=== PATIENT | female | born 1940 | race Caucasian/White ===

== ENCOUNTER 2016-12-29 11:51 | Emergency (ER) | payer OTHER ==
[~2016-12-29 11:51] MED LIST: ADVAIR 1001 DISK W/D PO; ADVAIR 2501 DISK W/D PO; ALBUTEROL17 GM INH; ALBUTEROL2.5 MG/0.5 INH; ALPRAZOLAM PO; AMITRYPTYLINE PO; ATARAX PO; ATORVASTATIN CA80 MG PO; AVANDIA PO; BRETHINE; BUSPAR PO; CALTRATE 600+D PO; CENTANY AT1 EACH TOP; CLARITIN10 M2 PO; CRESTOR PO; CYANOCOBALAM1000 MCG PO; DARVOCET-N 1001 TAB PO; DUONEB 2.5-0.5 M3 ML NEB; EC-NAPROSYN500 MG PO; FLAGYL PO; FLAGYL250 M1 PO; FOSAMAX70 MG PO; GLIPIZIDE10 MG PO; GLUCOVANCE 1.251 TAB PO; GLUCOVANCE 2.5/1 TA1 PO; HUMALOG MIX 75/23 M1 SUBQ; HUMULIN R100 U/ML; IMODIUM2 MG PO; KEPPRA500 M2 PO; LEVAQUIN PO; LEVSIN PO; LISINOPRIL PO; LISINOPRIL20 MG PO; LOPID600 MG PO; METFORMIN PO; MIRAPEX PO; NITROGLYGERIN0.4 MG SL; NITROGYLCERIN SL; NORVASC10 MG PO; NORVASC2.5 MG PO; PHENERGAN W/CO120 ML PO; PREMARIN PO; PROTONIX PO; SERTRALINE HCL100 M1 PO; SPIRIVA18 MCG INH; STAHIST TA1 TAB.SR . PO; THEOPHYLLIN PO; ZANTAC PO; ZESTRIL5 MG PO; ZETIA PO; ZOCOR PO
== END 2016-12-29 14:13 | disposition home or self-care (01) ==
LOC: SED 11:51
DX: S50.11XA Contusion of right forearm, initial encounter (principal); E11.9 Type 2 diabetes mellitus without complications; I10 Essential (primary) hypertension; J44.9 Chronic obstructive pulmonary disease, unspecified; Z87.891 Personal history of nicotine dependence; Z79.4 Long term (current) use of insulin; Z79.899 Other long term (current) drug therapy; Z88.0 Allergy status to penicillin; Z88.2 Allergy status to sulfonamides; Z88.8 Allergy status to other drugs, medicaments and biological substances; W19.XXXA Unspecified fall, initial encounter; Y92.009 Unspecified place in unspecified non-institutional (private) residence as the place of occurrence of the external cause
CPT/HCPCS: 99283

== ENCOUNTER 2017-03-07 11:54 | Inpatient (IN) | payer OTHER ==
--- NOTE | ~2017-03-07 | EKG ---
PATIENT: IDA MATHIS UNIT #: [id number] Ventricular Rate: 67 BPM Atrial Rate: 67 BPM P-R Interval: 202 ms QRS Duration: 88 ms Q-T Interval: 404 ms QTC Calculation(Bezet): 426 ms P [place]: 54 degrees Calculated R [place]: -28 degrees Calculated T [place]: 69 degrees Diagnosis Line: Normal sinus rhythm Diagnosis Line: Moderate voltage criteria for LVH, may be normal Diagnosis Line: variant Diagnosis Line: Borderline ECG Diagnosis Line: When compared with ECG of 06-DEC-2016 17:28, Diagnosis Line: No significant change was found Diagnosis Line: Confirmed by CHULA MILLER MD ([id number]) on Diagnosis Line: 03/12/2017 8:50:01 AM INTERPRETING MD: ANGELA BLAKE
[2017-03-07 12:51] LABS: BASOPHIL# 0.1 X10e3 (0-0.3); BASOPHIL% 0.5 % (0-2.5); EOSINOPHIL# 0.4 X10e3 (0-0.7); EOSINOPHIL% 3.7 % (0.0-7.0); HEMATOCRIT 34.9 % (35.0-45.0); HEMOGLOBIN 11.6 gm/dL (12.0-16.0); LYMPHOCYTE# 2.3 X10e3 (1.0-3.5); LYMPHOCYTE% 22.5 % (17.0-45.0); MEAN CELL VOLUME 86.2 FL (83-96); MEAN CORPUSCULAR HEMOGLOBIN 28.7 PG (28-34); MEAN CORPUSCULAR HGB CONC 33.3 g/dL (30-36); MEAN PLATELET VOLUME 8.1 FL (6.5-11.5); MONOCYTE# 0.6 X10e3 (0-1.0); MONOCYTE% 6.3 % (3.0-12.0); NEUTROPHIL# 6.7 X10e3 (1.5-7.1); PLATELET COUNT 336 X10e3 (140-420); RED BLOOD COUNT 4.05 X10e (3.90-5.30); RED CELL DISTRIBUTION WIDTH 13.5 % (11.0-15.5)
[2017-03-07 12:56] LABS: DIFF IND NO
[2017-03-07 13:08] LABS: BLOOD UREA NITROGEN 40 mg/dL (9-23); CALCIUM SERUM 9.3 mg/dL (8.4-10.2); CARBON DIOXIDE 24 mmol/L (22-31); CHLORIDE 106 mmol/L (100-111); GLOM FILT RATE Estimated 23.7 mL/min (>60); SODIUM 133 mmol/L (135-145)
[2017-03-07 13:10] LABS: POTASSIUM 5.8 mmol/L (3.5-5.1)
[2017-03-07 13:22] LABS: ALBUMIN SERUM 3.3 g/dL (3.5-5.0); ALKALINE PHOSPHATASE 60 U/L (32-92); ALT (SGPT) 12 U/L (10-40); AST (SGOT) 12 U/L (10-42); BILIRUBIN,TOTAL 0.3 mg/dL (0.2-2.0); GLUCOSE FASTING 266 mg/dL (70-110); PROTEIN TOTAL SERUM 7.3 g/dL (6.0-8.3)
[2017-03-07 13:23] LABS: BILIRUBIN, DIRECT <0.1 mg/dL (0.0-0.2); BILIRUBIN,INDIRECT 0.2 mg/dL (0.0-0.9)
[2017-03-09] MEDS ORDERED: HYDRALAZINE HCL50 MG PO (13:07)
[2017-03-09] MEDS ORDERED: FAMOTIDINE PO (13:07)
== END 2017-03-09 16:52 | disposition home or self-care (01) | DRG 683 ==
LOC: SED 11:54 → SEDOF 15:42 → SED 15:42 → C3A PCU 17:00
PROVIDERS: Emergency Medicine
PROC: 05H633Z Insertion of Infusion Device into Left Subclavian Vein, Percutaneous Approach (ICD-10-PCS; principal; 2017-03-08)
PROC: B547ZZA Ultrasonography of Left Subclavian Vein, Guidance (ICD-10-PCS; 2017-03-08)
DX: N17.9 Acute kidney failure, unspecified (principal); E44.1 Mild protein-calorie malnutrition; E11.22 Type 2 diabetes mellitus with diabetic chronic kidney disease; E11.65 Type 2 diabetes mellitus with hyperglycemia; K31.84 Gastroparesis; E11.43 Type 2 diabetes mellitus with diabetic autonomic (poly)neuropathy; E87.5 Hyperkalemia; J44.9 Chronic obstructive pulmonary disease, unspecified; Z90.710 Acquired absence of both cervix and uterus; I12.9 Hypertensive chronic kidney disease with stage 1 through stage 4 chronic kidney disease, or unspecified chronic kidney disease; N18.3 Chronic kidney disease, stage 3 (moderate); Z79.4 Long term (current) use of insulin; G40.909 Epilepsy, unspecified, not intractable, without status epilepticus; F32.9 Major depressive disorder, single episode, unspecified; G47.33 Obstructive sleep apnea (adult) (pediatric); K21.9 Gastro-esophageal reflux disease without esophagitis; G25.81 Restless legs syndrome
CPT/HCPCS: 36415; 76770; 80048; 80053; 80076; 81003; 82550; 82570; 82947; 83520; 83735; 84100; 84132; 84156; 84300; 84443; 85025; 85027; 86021; 86038; 86160; 86334; 87086; 93005; 94760; 99291; J0360; J0610; J1650; J1815; J1940; J1956

== ENCOUNTER 2017-03-22 14:39 | Emergency (ER) | payer OTHER ==
--- NOTE | ~2017-03-22 | CR72 ---
[facility] A Service of [facility] & [facility] RADIOLOGY TEXT RESULTS PATIENT: IDA MATHIS LOCATION: [facility] : 40 UNIT #: [id number] AGE: [address]: Weston Rojas MD SEX: F ORDER DR: [id number] [facility] [address] [place], [place] [address] [id number] E MR#: [id number] Acc #: [id number] NAME: IDA MATHIS : 1940 SEX: F STUDY DATE/TIME: 03/22/2017 15:55 UNIT: [facility] ROOM: STUDY DESCRIPTION: CR Chest Single View Portable Attending Physician: Weston Rojas M.D. Ordering Physician: Weston Rojas M.D. Primary Care Physician: Curry Gayle M.D. MEDICAL IMAGING REPORT This report is preliminary unless electronic signature is present EXAM Portable chest HISTORY Cough. Chest pain. Shortness of air for 3 days. FINDINGS Cardiac size and pulmonary vascularity are normal, allowing for shallow inspiration. No airspace infiltrates. No pleural effusions. [id number] hypertrophic and degenerative changes lower thoracic spine. IMPRESSION No acute findings and no active disease. Dictated by... Toño Pichardo M.D. THIS IS AN ELECTRONICALLY VERIFIED REPORT Toño Pichardo M.D. at 03/23/2017 10:31 PM DFL/pcl TD: 03/23/2017 00:27 JOB #: [id number] MEDICAL IMAGING REPORT Page 1 of 1 COPY
--- NOTE | ~2017-03-22 | EKG ---
PATIENT: IDA MATHIS UNIT #: [id number] Ventricular Rate: 66 BPM Atrial Rate: 66 BPM P-R Interval: 176 ms QRS Duration: 82 ms Q-T Interval: 414 ms QTC Calculation(Bezet): 434 ms P [place]: 32 degrees Calculated R [place]: -26 degrees Calculated T [place]: 59 degrees Diagnosis Line: Normal sinus rhythm Diagnosis Line: Moderate voltage criteria for LVH, may be normal Diagnosis Line: variant Diagnosis Line: Borderline ECG Diagnosis Line: When compared with ECG of 07-MAR-2017 12:38, Diagnosis Line: No significant change was found Diagnosis Line: Confirmed by RUSSELL HOUSER MD ([id number]) on Diagnosis Line: 03/23/2017 10:04:05 PM INTERPRETING MD: VICENTA
[~2017-03-22 14:39] MED LIST changes: +FAMOTIDINE PO; +HYDRALAZINE HCL50 MG PO
[2017-03-22 15:43] LABS: BASOPHIL# 0.1 X10e3 (0-0.3); BASOPHIL% 0.5 % (0-2.5); EOSINOPHIL# 0.2 X10e3 (0-0.7); EOSINOPHIL% 1.3 % (0.0-7.0); HEMATOCRIT 35.4 % (35.0-45.0); HEMOGLOBIN 11.5 gm/dL (12.0-16.0); LYMPHOCYTE# 3.4 X10e3 (1.0-3.5); LYMPHOCYTE% 24.1 % (17.0-45.0); MEAN CELL VOLUME 86.1 FL (83-96); MEAN CORPUSCULAR HEMOGLOBIN 28.1 PG (28-34); MEAN CORPUSCULAR HGB CONC 32.6 g/dL (30-36); MEAN PLATELET VOLUME 7.6 FL (6.5-11.5); NEUTROPHIL# 9.6 X10e3 (1.5-7.1); NEUTROPHIL% 67.1 % (40-75); PLATELET COUNT 381 X10e3 (140-420); RED CELL DISTRIBUTION WIDTH 13.5 % (11.0-15.5); WHITE BLOOD COUNT 14.3 X10e3 (4.0-10.5)
[2017-03-22 15:46] LABS: DIFF IND NO
[2017-03-22 15:57] LABS: POC - CKMB 2.2 ng/mL (0.0-7.9); POC - TROPONIN <0.05 ng/mL (<=0.05)
[2017-03-22 16:04] LABS: ALBUMIN SERUM 3.7 g/dL (3.5-5.0); ALKALINE PHOSPHATASE 61 U/L (32-92); ALT (SGPT) 14 U/L (10-40); AST (SGOT) 18 U/L (10-42); BILIRUBIN, DIRECT <0.1 mg/dL (0.0-0.2); BILIRUBIN,INDIRECT 0.4 mg/dL (0.0-0.9); BILIRUBIN,TOTAL 0.5 mg/dL (0.2-2.0); BLOOD UREA NITROGEN 31 mg/dL (9-23); BUN/CREATININE RATIO 17.22; CALCIUM SERUM 9.3 mg/dL (8.4-10.2); CARBON DIOXIDE 23 mmol/L (22-31); CHLORIDE 103 mmol/L (100-111); CREATININE SERUM 1.8 mg/dL (0.6-1.4); GLOM FILT RATE Estimated 26.9 mL/min (>60); GLUCOSE FASTING 70 mg/dL (70-110); POTASSIUM 4.5 mmol/L (3.5-5.1); SODIUM 136 mmol/L (135-145)
[2017-03-22 17:51] LABS: POC - CKMB 2.4 ng/mL (0.0-7.9); POC - TROPONIN <0.05 ng/mL (<=0.05)
== END 2017-03-22 19:05 | disposition home or self-care (01) ==
LOC: CED 14:39
PROVIDERS: Emergency Medicine
DX: R19.7 Diarrhea, unspecified (principal); I12.9 Hypertensive chronic kidney disease with stage 1 through stage 4 chronic kidney disease, or unspecified chronic kidney disease; N18.9 Chronic kidney disease, unspecified; F32.9 Major depressive disorder, single episode, unspecified; J44.9 Chronic obstructive pulmonary disease, unspecified; F41.9 Anxiety disorder, unspecified; G40.909 Epilepsy, unspecified, not intractable, without status epilepticus; G25.81 Restless legs syndrome; Z90.49 Acquired absence of other specified parts of digestive tract; Z90.710 Acquired absence of both cervix and uterus; Z88.0 Allergy status to penicillin; Z88.1 Allergy status to other antibiotic agents
CPT/HCPCS: 36415; 71010; 80048; 80076; 82553; 82947; 84484; 85025; 93005; 99284